=== PATIENT | male | born 1995 | race Caucasian/White ===

== ENCOUNTER 2017-10-27 14:12 | Emergency (ER) | payer OTHER ==
[~2017-10-27] VITALS: Ht 182.9 cm; Wt 104.3 kg
[~2017-10-27 14:12] MED LIST: CEPH500 PO; CODACEE120 PO; Cyclobenzaprine5 MG PO; HYDACE5 PO; Norco 5-325 Ta1 EACH PO
[2017-10-27] MEDS ORDERED: PENVK500 PO (14:44)
== END 2017-10-27 14:54 | disposition home or self-care (01) ==
LOC: ER 14:12
DX: J02.0 Streptococcal pharyngitis (principal); F17.200 Nicotine dependence, unspecified, uncomplicated
CPT/HCPCS: 99283; J1100

== ENCOUNTER 2021-04-09 09:49 | Emergency (ER) | payer BC ==
[~2021-04-09] VITALS: Ht 185.4 cm; Wt 113.8 kg
[~2021-04-09 09:49] MED LIST changes: +PENVK500 PO
[2021-04-09] MEDS ORDERED: ESCI10 PO (10:05)
[2021-04-09] MEDS ORDERED: QUETIAPINE FUMA25 MG PO (10:05)
[2021-04-09] MEDS ORDERED: OXYC5 PO (13:06)
[2021-04-09] MEDS ORDERED: CYCL10 PO (13:06)
== END 2021-04-09 13:14 | disposition home or self-care (01) ==
LOC: ER 09:49
DX: S16.1XXA Strain of muscle, fascia and tendon at neck level, initial encounter (principal); S39.012A Strain of muscle, fascia and tendon of lower back, initial encounter; S29.012A Strain of muscle and tendon of back wall of thorax, initial encounter; V49.40XA Driver injured in collision with unspecified motor vehicles in traffic accident, initial encounter; Y92.411 Interstate highway as the place of occurrence of the external cause
CPT/HCPCS: 72040; 72070; 72141; 99284-25

== ENCOUNTER 2023-01-12 01:24 | Emergency (ER) | payer OTHER ==
[~2023-01-12] VITALS: Ht 185.4 cm; Wt 127.0 kg
[~2023-01-12 01:24] MED LIST changes: +CYCL10 PO; +ESCI10 PO; +IBUP600 PO; +ONDA4ODT MM; +OXYC5 PO; +QUETIAPINE FUMA25 MG PO
== END 2023-01-12 05:45 | disposition home or self-care (01) ==
LOC: ER 01:24
DX: F10.929 Alcohol use, unspecified with intoxication, unspecified (principal); F17.290 Nicotine dependence, other tobacco product, uncomplicated
CPT/HCPCS: 99284